=== PATIENT | male | born 1995 | race African-American/Black ===

== ENCOUNTER 2018-12-30 22:51 | Emergency (ER) | payer BC, OTHER ==
[2018-12-30] MEDS ORDERED: NORMAL SALINE 1000 ML 1,000 ML IV ONE (22:59)
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
[2018-12-30 23:20] LABS: ABSOLUTE LYMPHOCYTES (AUTO) 0.5 10^3/uL (0.5-4.7); ABSOLUTE MONOCYTES (AUTO) 0.3 10^3/uL (0.1-1.4); ABSOLUTE NEUT (AUTO) 6.6 10^3/uL (1.7-8.2); BASOPHILS % (AUTO) 0.4 % (0-2); EOSINOPHILS % (AUTO) 0.1 % (0-6); HEMATOCRIT 51.9 % (37.9-51.0); HEMOGLOBIN 17.7 g/dL (13.5-17.0); LYMPHOCYTES % (AUTO) 6.3 % (13-45); MEAN CORPUSCULAR HEMOGLOBIN 28.1 pg (27.0-33.4); MEAN CORPUSCULAR HGB CONC 34.1 g/dL (32.0-36.0); MEAN CORPUSCULAR VOLUME 82 fl (80-97); MONOCYTES % (AUTO) 4.3 % (3-13); PLATELET COUNT 302 10^3/uL (150-450); RED BLOOD COUNT 6.31 10^6/uL (4.35-5.55); RED CELL DISTRIBUTION WIDTH 14.1 % (11.5-14.0); SEGMENTED NEUTROPHILS % (AUTO) 88.9 % (42-78); TOTAL CELLS COUNTED % (AUTO) 100 %; WHITE BLOOD COUNT 7.5 10^3/uL (4.0-10.5)
[2018-12-30 23:45] LABS: ACETAMINOPHEN < 10 ug/mL (10-30); ALBUMIN 5.1 g/dL (3.5-5.0); ALCOHOL < 10 mg/dL (NONE DETECTED); ALKALINE PHOSPHATASE 91 U/L (38-126); ANION GAP 16 (5-19); ASPARTATE AMINO TRANSFERASE 35 U/L (17-59); BILIRUBIN,DIRECT 0.3 mg/dL (0.0-0.4); BILIRUBIN,TOTAL 0.8 mg/dL (0.2-1.3); BLOOD UREA NITROGEN 12 mg/dL (7-20); CALCIUM 10.8 mg/dL (8.4-10.2); CARBON DIOXIDE 23 mmol/L (22-30); CHLORIDE 102 mmol/L (98-107); CREATINE KINASE 273 U/L (55-170); GLUCOSE 133 mg/dL (75-110); POTASSIUM 4.4 mmol/L (3.6-5.0); SALICYLATE < 1.0 mg/dL (2.0-20.0); TOTAL PROTEIN 8.8 g/dL (6.3-8.2)
[2018-12-31] MEDS ORDERED: NORMAL SALINE 1000 ML 1,000 ML IV ONE (00:55)
[2018-12-31] MEDS ORDERED: DEXTROSE 5%-LACTATED RINGERS 1,000 ML IV ONE (04:37)
[2018-12-31] MEDS ORDERED: THIAMINE HCL INJ 200 MG/2 ML VIAL IV ONE (04:41)
[2018-12-31] MEDS ORDERED: LORAZEPAM INJ 2 MG/1 ML VIAL IV ONE ×2 (04:41→09:59)
[2018-12-31 05:28] LABS: APPEARANCE,URINE CLEAR; BILIRUBIN,URINE NEGATIVE (NEGATIVE); COLOR,URINE AMBER; GLUCOSE, URINE NEGATIVE (NEGATIVE); KETONES,URINE 80 mg/dL (NEGATIVE); LEUKOCYTE ESTERASE,URINE NEGATIVE (NEGATIVE); NITRITE,URINE NEGATIVE (NEGATIVE); PROTEIN,URINE 100 mg/dL (NEGATIVE); URINE SPECIFIC GRAVITY 1.029; UROBILINOGEN,URINE NEGATIVE mg/dL (<2.0)
[2018-12-31 05:36] LABS: URINE AMPHETAMINES SCREEN NEGATIVE; URINE BARBITURATES SCREEN NEGATIVE; URINE BENZODIAZEPINES SCREEN NEGATIVE; URINE COCAINE SCREEN NEGATIVE; URINE MARIJUANA (THC) SCREEN NEGATIVE; URINE METHADONE SCREEN NEGATIVE; URINE PHENCYCLIDINE SCREEN NEGATIVE
--- NOTE | 2018-12-31 07:56 | EKG REPORT ---
SEVERITY:- ABNORMAL ECG - SINUS TACHYCARDIA NONSPECIFIC T ABNORMALITIES, LATERAL LEADS : Confirmed by: Nohemi Glover 31-Dec-2018 07:55:48
[2018-12-31] MEDS ORDERED: BENZTROPINE MESYLATE 1 MG TABLET PO ONE (10:02)
[2018-12-31] MEDS ORDERED: OLANZAPINE 5 MG TABLET PO ONE (10:02)
--- NOTE | 2018-12-31 10:13 | ER Document Report ---
Doctor's Note Notes: 12/31/18 10:11 I have evaluated this pt. this am and he has no c/o at this time. His parents are in the room with him. He feels all of his needs are being met and his physical exam is normal. He is awaiting disposition per mental health.
[2018-12-31] MEDS ORDERED: OLANZAPINE INJ/PF 10 MG SDV IM ONE (10:26)
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
[2018-12-31] MEDS ORDERED: IBUPROFEN 800 MG TABLET PO ONE (18:11)
[2018-12-31] MEDS ORDERED: ACETAMINOPHEN 325 MG TABLET PO ONE (19:47)
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
[2019-01-01 08:07] VITALS: BP 130/66
[2019-01-01] MEDS: BENZTROPINE MESYLATE 1 MG TABLET PO SCH ×2 (08:43→09:37)
[2019-01-01] MEDS: OLANZAPINE 5 MG TABLET PO SCH (08:43)
--- NOTE | 2019-01-01 10:24 | ER Document Report ---
Doctor's Note Notes: 01/01/19 10:22 Pt seen this am with mom at bedside. He is resting and watching tv. Mom would like to take home. She is concerned about sts of his nose and his left elbow soreness. I will obtain xrays of both. He will be discharged following this. 01/01/19 12:17 Pt has been released from [facility] and will released to mother and she states she will have him follow up. Should follow up routinely for the nasal bone fractures and use ice as tolerated. Tylenol for pain.
--- NOTE | 2019-01-01 11:45 | RADIOLOGY REPORT (SQ) ---
EXAM DESCRIPTION: ELBOW LEFT AP/LATERAL COMPLETED DATE/TIME: 01/01/2019 11:35 am REASON FOR STUDY: pain/ injury COMPARISON: None. NUMBER OF VIEWS: Two views. TECHNIQUE: AP and lateral radiographic images acquired of the left elbow. LIMITATIONS: None. FINDINGS: MINERALIZATION: Normal. BONES: No acute fracture or dislocation. No worrisome bone lesions. JOINT: No effusion. SOFT TISSUES: Soft tissue edema dorsally. OTHER: No other significant finding. IMPRESSION: Soft tissue edema. No fracture. TECHNICAL DOCUMENTATION: JOB ID: [id number] [employer]- All Rights Reserved Reading location - IP/workstation name: [email or web address]
--- NOTE | 2019-01-01 11:46 | RADIOLOGY REPORT (SQ) ---
EXAM DESCRIPTION: NOSE/NASAL BONES COMPLETED DATE/TIME: 01/01/2019 11:36 am REASON FOR STUDY: pain COMPARISON: None. NUMBER OF VIEWS: Three view. TECHNIQUE: Images of the facial bones acquired. LIMITATIONS: None. FINDINGS: ORBITS: No fracture. No foreign body. SINUSES: No mucosal thickening. No air fluid levels. FACIAL BONES: There are bilateral distal nasal bone fractures with approximately 1 mm separation. Th ere is a 2nd more proximal fracture on the left with less than 1 mm of separation. OTHER: No other significant finding. IMPRESSION: Bilateral nasal bone fractures as described. TECHNICAL DOCUMENTATION: JOB ID: [id number] [employer]- All Rights Reserved Reading location - IP/workstation name: [email or web address]
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
== END 2019-01-01 12:40 | disposition home or self-care (01) ==
LOC: ER 22:51
DX: S02.2XXA Fracture of nasal bones, initial encounter for closed fracture (principal); S80.811A Abrasion, right lower leg, initial encounter; S80.212A Abrasion, left knee, initial encounter; S50.312A Abrasion of left elbow, initial encounter; F29 Unspecified psychosis not due to a substance or known physiological condition; F31.9 Bipolar disorder, unspecified; R04.0 Epistaxis; X83.8XXA Intentional self-harm by other specified means, initial encounter; R41.82 Altered mental status, unspecified
CPT/HCPCS: 93005; 36415; 80307 ×4; 82550; 85025; 80053; 81001; 73070; 70160; 93010; J2060; J7121; J7030 ×2; 51701; 96361; 96374; 96375; 99285